=== PATIENT | female | born 1950 | race Caucasian/White ===

== ENCOUNTER → 2024-07-01 | Outpatient (CLI) | payer MEDICARE, OTHER, SELFPAY ==
[2024-07-01 17:49] LABS: Absolute Lymphocyte Count 1.49 X10^3/uL (0.83-4.51); Basophil# 0.04 X10^3/uL; Basophil% 0.7 % (0-1); Eosinophils% 1.7 % (0-5); Hematocrit 42.3 % (37-47); Hemoglobin 13.6 g/dL (12.0-15.0); Lymphocyte # 1.49 X10^3/ul (0.83-4.51); Lymphocyte % 24.8 % (19-41); Mean Corp Hgb Conc 32.2 g/dL (32-36); Mean Corpuscular Hgb 29.6 pg (27.0-32.0); Mean Corpuscular Volume 92.2 fL (81-99); Mean Platelet Vol. 11.5 fl (6.2-12.0); Monocyte# 0.38 X10^3/uL; Monocyte% 6.3 % (0-10); NRBC Flagged by Analyzer 0 % (0-5); Neutrophil # 3.98 X10^3/uL (2.7-7.7); Neutrophil % 66.2 % (47-70); Platelet Count 187 K/mm3 (150-450); RBC Distribution Width CV 12.1 % (11.6-14.6); Red Blood Count 4.59 M/mm3 (4.2-5.4)
[2024-07-01 17:55] LABS: ALB/GLOB Ratio 1.3 RATIO (0.9-2.4); AST(SGOT) 18 U/L (15-37); Alanine Aminotransfer ALT/SGPT 21 U/L (13-56); Albumin, Serum 4.2 g/dL (3.2-5.0); Alkaline Phosphatase 49 U/L (45-117); Anion Gap 6 (5-15); BUN 11 mg/dL (7-18); BUN/Creat Ratio 12.2 RATIO (10-20); Calcium,Total 9.1 mg/dL (8.5-10.1); Chloride 108 mmol/L (98-107); EST Glomerular Filtration Rate 66 mL/min (>60); Est Glom Filt Rate - Afr Amer 79 mL/min (>60); Globulin 3.2 g/dL (2.2-4.2); Glucose 102 mg/dL (74-106); Potassium 3.9 mmol/L (3.5-5.1); Protein, Total 7.4 g/dL (6.4-8.2); Sodium Level 142 mmol/L (136-145)
[2024-07-01 18:14] LABS: Hemoglobin A1c 6.2 % (3.8-5.6)
[2024-07-01 19:13] LABS: Vitamin D,25 Hydroxy 74.7 ng/mL
== END | disposition home or self-care (01) ==
PROVIDERS: Referring Provider Nurse Practitioner Family; Visit Provider Nurse Practitioner Family
DX: F42.8 Other obsessive-compulsive disorder (principal); F41.9 Anxiety disorder, unspecified; R53.83 Other fatigue; Z22.338 Carrier of other streptococcus
CPT/HCPCS: 80053; 82306; 83036; 85025

== ENCOUNTER → 2024-08-11 | Outpatient (CLI) | payer MEDICARE, OTHER, SELFPAY ==
[2024-08-11 15:39] LABS: Fibrinogen 349 mg/dl (203-444)
[2024-08-11 16:15] LABS: Cholesterol 191 mg/dL (200); High Density Lipoprotein 77 mg/dL; Magnesium 2.2 mg/dL (1.6-2.6); Triglycerides 163 mg/dL; Uric Acid 4.4 mg/dL (2.6-6.0); Very Low Density Lipoprotein 33 mg/dL (5-40)
[2024-08-13 05:08] LABS: HOMOCYSTEINE 12.4 umol/L (0.0-19.2)
[2024-08-15 16:09] LABS: Lipoprotein A 37.7 nmol/L (<75.0)
[2024-08-18 07:09] LABS: VITAMIN B6 8.7 ug/L (3.4-65.2)
== END | disposition home or self-care (01) ==
PROVIDERS: Visit Provider Nurse Practitioner Family
DX: E11.9 Type 2 diabetes mellitus without complications (principal); D68.59 Other primary thrombophilia; E78.5 Hyperlipidemia, unspecified; F42.8 Other obsessive-compulsive disorder; F41.9 Anxiety disorder, unspecified
CPT/HCPCS: 36415; 80061; 83090; 83695; 83735; 84207; 84425; 84550; 85384

== ENCOUNTER → 2024-11-11 | Outpatient (CLI) | payer MEDICARE, OTHER, SELFPAY ==
[2024-11-11 12:51] LABS: Absolute Lymphocyte Count 1.32 X10^3/uL (0.83-4.51); Absolute Neutrophil Count 3.8 X10^3/uL (2.0-7.7); Basophil# 0.03 X10^3/uL; Basophil% 0.5 % (0-1); Eosinophil# 0.11 X10^3/uL; Hematocrit 39.9 % (37-47); Hemoglobin 13.6 g/dL (12.0-15.0); Lymphocyte # 1.32 X10^3/ul (0.83-4.51); Lymphocyte % 23.6 % (19-41); Mean Corp Hgb Conc 34.1 g/dL (32-36); Mean Corpuscular Hgb 30.2 pg (27.0-32.0); Mean Corpuscular Volume 88.5 fL (81-99); Mean Platelet Vol. 10.5 fl (6.2-12.0); Monocyte# 0.36 X10^3/uL; Monocyte% 6.4 % (0-10); NRBC Flagged by Analyzer 0 % (0-5); Neutrophil # 3.76 X10^3/uL (2.7-7.7); Neutrophil % 67.1 % (47-70); Platelet Count 164 K/mm3 (150-450); RBC Distribution Width CV 11.7 % (11.6-14.6); RBC Distribution Width SD 37.3 fl (35.1-43.9); Red Blood Count 4.51 M/mm3 (4.2-5.4); White Blood Count 5.6 K/mm3 (4.4-11.0)
[2024-11-11 13:41] LABS: ALB/GLOB Ratio 1.2 RATIO (0.9-2.4); AST(SGOT) 28 U/L (15-37); Alanine Aminotransfer ALT/SGPT 42 U/L (13-56); Albumin, Serum 3.6 g/dL (3.2-5.0); Alkaline Phosphatase 51 U/L (45-117); Anion Gap 7 (5-15); BUN 12 mg/dL (7-18); BUN/Creat Ratio 13.4 RATIO (10-20); Chloride 106 mmol/L (98-107); Creatinine, Serum 0.89 mg/dL (0.55-1.02); EST Glomerular Filtration Rate 66 mL/min (>60); Est Glom Filt Rate - Afr Amer 80 mL/min (>60); Ferritin 232 ng/mL (8-252); Free T3 2.3 pg/mL (2.18-3.98); Globulin 3.1 g/dL (2.2-4.2); Glucose 135 mg/dL (74-106); Iron 82 ug/dL (50-170); Potassium 3.9 mmol/L (3.5-5.1); Protein, Total 6.7 g/dL (6.4-8.2); Sodium Level 141 mmol/L (136-145); T4 Free Direct 0.88 ng/dL (0.76-1.46)
[2024-11-11 14:01] LABS: Hemoglobin A1c 6.8 % (3.8-5.6)
[2024-11-11 14:17] LABS: Vitamin B12 410 pg/mL (211-911)
[2024-11-17 07:08] LABS: T3 Reverse 14.9 ng/dL (9.2-24.1)
== END | disposition home or self-care (01) ==
LOC: LABSPEC 12:12
PROVIDERS: Referring Provider Nurse Practitioner Family; Visit Provider Nurse Practitioner Family
DX: E11.9 Type 2 diabetes mellitus without complications (principal); D68.59 Other primary thrombophilia; E78.5 Hyperlipidemia, unspecified; M79.18 Myalgia, other site
CPT/HCPCS: 80053; 82607; 82728; 82746; 83036; 83540; 84439; 84443; 84481; 84482; 85025

== ENCOUNTER → 2024-11-18 | Outpatient (CLI) | payer MEDICARE, OTHER, SELFPAY ==
[2024-11-18 15:56] LABS: Erythrocyte Sedimentation Rate 12 mm/hr (0-30)
[2024-11-18 16:14] LABS: Amylase 69 U/L (25-115); CRP < 2.90 mg/L (0.0-3.0); Lipase 40 U/L (73-393)
[2024-11-18 16:52] LABS: Hemoglobin A1c 6.7 % (3.8-5.6)
[2024-11-20 12:07] LABS: Insulin Level 18.1 uIU/mL (2.6-24.9)
== END | disposition home or self-care (01) ==
LOC: LABSPEC 15:00
PROVIDERS: Referring Provider Nurse Practitioner Family; Visit Provider Nurse Practitioner Family
DX: M79.18 Myalgia, other site (principal); E11.9 Type 2 diabetes mellitus without complications; E78.5 Hyperlipidemia, unspecified; D68.59 Other primary thrombophilia; F41.9 Anxiety disorder, unspecified
CPT/HCPCS: 82150; 83036; 83525; 83690; 85652; 86140

== ENCOUNTER → 2025-02-14 | Outpatient (CLI) | payer MEDICARE, OTHER, SELFPAY ==
[2025-02-14 16:32] LABS: Cholesterol 163 mg/dL (<=200); High Density Lipoprotein 63 mg/dL; Low Density Lipoprotein Calc. 82 mg/dL; Triglycerides 87 mg/dL; Very Low Density Lipoprotein 17 mg/dL (5-40); cholesterol:hdl ratio screen 2.58
[2025-02-14 17:13] LABS: Amylase 73 U/L (28-100); Lipase 39 U/L (13-75)
== END | disposition home or self-care (01) ==
PROVIDERS: Referring Provider Nurse Practitioner Family; Visit Provider Nurse Practitioner Family
DX: E11.9 Type 2 diabetes mellitus without complications (principal); E78.5 Hyperlipidemia, unspecified; R10.9 Unspecified abdominal pain
CPT/HCPCS: 80061; 82150; 83690

== ENCOUNTER → 2025-05-01 | Outpatient (CLI) | payer MEDICARE, OTHER, SELFPAY ==
[2025-05-01 15:59] LABS: Hematocrit 39.1 % (37-47); Hemoglobin 13.0 g/dL (12.0-15.0); Immature Granulocytes Count 0.010 X10^3/uL (0.0-0.0); Mean Corp Hgb Conc 33.2 g/dL (32-36); Mean Corpuscular Volume 92.9 fL (81-99); Mean Platelet Vol. 10.7 fl (6.2-12.0); NRBC Flagged by Analyzer 0 % (0-5); Platelet Count 194 K/mm3 (150-450); RBC Distribution Width CV 11.7 % (11.6-14.6); RBC Distribution Width SD 39.6 fl (35.1-43.9); Red Blood Count 4.21 M/mm3 (4.2-5.4); White Blood Count 5.1 K/mm3 (4.4-11.0)
[2025-05-01 17:44] LABS: AST(SGOT) 42 U/L (<=31); Alanine Aminotransfer ALT/SGPT 41 U/L (<=34); Albumin, Serum 4.2 g/dL (3.4-4.8); Alkaline Phosphatase 68 U/L (35-104); Anion Gap 15 (5-15); BUN 12 mg/dL (4-19); BUN/Creat Ratio 14.2 RATIO (10-20); Calcium,Total 9.3 mg/dL (7.6-11.0); Carbon Dioxide 24.7 mmol/L (21.0-32.0); Chloride 102 mmol/L (98-108); Cholesterol 220 mg/dL (<=200); Globulin 2.1 g/dL (2.2-4.2); Glucose 118 mg/dL (70-99); Low Density Lipoprotein Calc. 117 mg/dL; Potassium 4.2 mmol/L (3.3-5.1); Triglycerides 77 mg/dL; Very Low Density Lipoprotein 15 mg/dL (5-40); cholesterol:hdl ratio screen 2.51
[2025-05-03 04:07] LABS: PROGESTERONE 0.5 ng/mL (.)
== END | disposition home or self-care (01) ==
LOC: LABSPEC 15:02
PROVIDERS: Referring Provider Nurse Practitioner Family; Visit Provider Nurse Practitioner Family
DX: E11.9 Type 2 diabetes mellitus without complications (principal); E78.5 Hyperlipidemia, unspecified; E28.9 Ovarian dysfunction, unspecified; D68.59 Other primary thrombophilia; R53.83 Other fatigue
CPT/HCPCS: 80053; 80061; 82627; 82670; 83036; 84144; 84403; 85025; 82626